=== PATIENT | female | born 1970 | race Caucasian/White ===

== ENCOUNTER → 2020-08-11 | Outpatient (CLI) | payer BC, OTHER | LOC: MAMO 07-19 10:00 → US 07-19 10:30 → MAMO 10:00 | DX: R92.8 Other abnormal and inconclusive findings on diagnostic imaging of breast (principal) | CPT/HCPCS: 76641-RT; 77065; G0279 ==

== ENCOUNTER → 2021-10-04 | Outpatient (CLI) | payer BC | LOC: KOH-I 10:05 | DX: M25.562 Pain in left knee (principal); M25.561 Pain in right knee | CPT/HCPCS: 73562; 73630 ==